=== PATIENT | male | born 1985 | race Caucasian/White ===

== ENCOUNTER 2019-12-14 16:44 | Emergency (ER) | payer OTHER ==
[~2019-12-14] VITALS: Ht 182.9 cm; Wt 104.3 kg
[~2019-12-14 16:44] MED LIST: AZITHROMYCIN 2250 MG PO
[2019-12-14 17:18] LABS: ABSOLUTE BASOPHILS 0.1 thou/uL (0.0-0.2); ABSOLUTE EOSINOPHILS 0.4 thou/uL (0.0-0.7); ABSOLUTE LYMPHOCYTES 2.8 thou/uL (0.8-5.3); ABSOLUTE MONOCYTES 1.3 thou/uL (0.0-1.2); ABSOLUTE NEUTROPHILS 11.7 thou/uL (1.6-8.1); BASOPHILS 0.4 %; EOSINOPHILS 2.3 %; HEMOGLOBIN 14.3 gm/dL (14.0-18.0); MCHC 34.9 g/dL (28.0-37.0); MCV 88.9 fL (80.0-100.0); MONOCYTES 7.9 %; MPV 7.9 fl. (7.2-11.1); NUCLEATED RBCS 0 /100WBC; PLATELET COUNT* 295 thou/uL (150-400); POLYS 72.4 %; RBC 4.61 mil/uL (4.50-6.00); RDW-CV 12.4 % (10.5-14.5); WBC 16.2 thou/uL (4.0-11.0)
[2019-12-14 17:20] LABS: CALCIUM 8.8 mg/dL (8.5-10.1); CREATININE 1.1 mg/dL (0.6-1.3); POTASSIUM 3.6 mmol/L (3.5-5.1)
[2019-12-14 17:25] LABS: ALBUMIN 4.3 g/dL (3.4-5.0); TOTAL BILIRUBIN 0.4 mg/dL (<0.1-1.0); TOTAL PROTEIN 7.9 g/dL (6.4-8.2)
[2019-12-14 20:11] LABS: URINE BILIRUBIN NEGATIVE (Negative); URINE BLOOD 3+ (Negative); URINE CLARITY HAZY; URINE COLOR YELLOW; URINE GLUCOSE-RANDOM NEGATIVE (Negative); URINE KETONES NEGATIVE (Negative); URINE LEUKOCYTES-REFLEX NEGATIVE (Negative); URINE NITRITE-REFLEX NEGATIVE (Negative); URINE PROTEIN 1+ (Negative); URINE SPECIFIC GRAVITY 1.025 (1.005-1.030)
[2019-12-14 20:22] LABS: BACTERIA-REFLEX None Seen /HPF (None Seen); CASTS None Seen /LPF (None Seen); CRYSTALS None Seen /LPF (None Seen); MUCUS 0-3 Light strn/LPF (None Seen); SQUAMOUS 0-3 Few /LPF (0-3); URINE RBC >20 Many /HPF (0-2); URINE WBC-REFLEX None Seen /HPF (0-5)
[2019-12-14] MEDS ORDERED: CIPRO500 MG PO (20:28)
[2019-12-14] MEDS ORDERED: IBUPROFEN 800800 M1 PO (20:28)
[2019-12-14] MEDS ORDERED: PERCOCET PO (20:28)
[2019-12-14] MEDS ORDERED: FLOMAX0.4 MG PO (20:28)
[2019-12-14] MEDS ORDERED: ONDANSETRON HCL4 M2 PO (20:28)
[2019-12-14 20:47] VITALS: BP 141/70
== END 2019-12-14 20:48 | disposition home or self-care (01) ==
LOC: M.ERS 16:44
PROVIDERS: Nurse Practitioner Family
DX: N20.1 Calculus of ureter (principal)